=== PATIENT | male | born 1995 | race Caucasian/White ===

== ENCOUNTER 2018-07-07 23:42 | Emergency (ER) | payer OTHER ==
[2018-07-08 00:32] VITALS: BP 125/60; PULSE 66; TEMP 98.7; BMI 44.3
--- NOTE | 2018-07-08 01:01 | PDOC ---
Attending Attestation - [facility] HPI: 07/08/18 01:05 The patient is a 23 year old male, with no significant past medical history who presents to the emergency department with suprapubic pain and pressure with associated urinary frequency. He states he notices a burning suprapubic pain with sitting down and a pressure-like pain on urination. He denies penile discharge. He states he is sexually active with one partner. The patient denies chest pain, shortness of breath, headache and dizziness. The patient denies fever, chills, nausea, vomit, diarrhea and constipation. The patient denies dysuria, urgency and hematuria. Allergies: NKDA - Physicial Exam PE: 07/08/18 01:06 Constitutional: Awake, alert, oriented. No acute distress. Head: Normocephalic. Atraumatic Eyes: PERRL. EOMI. Conjunctivae are not pale. ENT: Mucous membranes are moist and intact. Posterior pharynx without exudates or erythema. Uvula midline. Neck: Supple. Full ROM. No lymphadenopathy. Cardiovascular: Regular rate. Regular rhythm. S1, S2 regular. Distal pulses are 2+ and symmetric. Pulmonary/Chest: No evidence of respiratory distress. Clear to auscultation bilaterally No wheezing, rales or rhonchi. Abdominal: (+) mild suprapubic tenderness. Soft and non-distended. No rebound , guarding or rigidity. No organomegaly. No palpable masses. Good bowel sounds. Back: No CVA tenderness. Musculoskeletal: No edema. No cyanosis. No clubbing. Full range of motion in all extremities. Nocalf tenderness. Radial/pedal pulses are intact and 2+ bilaterally Skin: Skin is warm and dry. No petechiae. No purpura. Neurological: Alert and oriented to person, place, and time. Cranial nerves II -XII are grossly intact. Normal speech. Strength is grossly symmetric. No sensory deficits. Psychiatric: Good eye contact. Normal interaction, affect and behavior. Genital: no testicular tenderness, no abscess. no perianal tenderness or abscess. No penile discharge. No lesions. - Medical Decision Making 07/08/18 01:06 Documentation prepared by Tari Long, acting as territory sales manager medical for Carmen Lara DO <Tari Long - Last Filed: 07/08/18 02:09> - Resident Resident Name: Marilyn Mckoy - ED Attending Attestation I have performed the following: I have examined & evaluated the patient, The case was reviewed & discussed with the resident, I agree w/resident's findings & plan, Exceptions are as noted - Medical Decision Making 07/08/18 01:03 I, Dr. Carmen Lara, DO, attest that this document has been prepared under my direction and personally reviewed by me in its entirety. I further attest, that it accurately reflects all work, treatment, procedures and medical decision -making performed by me. 07/09/18 16:59 a/p: 23yo male with suprapubic ttp and urinary freq -concern for uti -will send ua testicular exam no ttp, no scrotal ttp, no lesions, no discharge from the penis , no hernias ua negative discussed follow up with urology <Carmen Lara - Last Filed: 07/09/18 17:00>
--- NOTE | 2018-07-08 01:04 | PDOC ---
History of Present Illness - General Chief Complaint: Pain Stated Complaint: ROOM 2 Time Seen by Provider: 07/08/18 00:39 History Source: Patient - History of Present Illness Initial Comments: 07/08/18 00:57 Patient is a 23 year old male with no significant PMHx who presents today for a two week history of pain and pressure in the suprapubic region. Patient reports when sitting down he feels a burning sensation in the suprapubic region and when he stands up he feels pressure in the same area associated with urgency. 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 Patient does admit to holding in his urine for long periods of time when at work Patient is sexually active with only one partner, his . Denies any history of sexually transmitted disease or UTI's Patient otherwise denies any frequency, dysuria, penile discharge, testicular pain or tenderness, fever, chills, nausea, vomiting, chest pain, palpitations, shortness of breath, hematuria, melena, hematochezia, hematemesis. PMHx: Denies PSHx: Denies Social Hx: Denies drug use Drinks alcohol occasionally Smokes a cigar only on occasions Works as a cdl team truck driver Lives with and son Family Hx: Father- Healthy Mother- Healthy Past History - Past Medical History Allergies/Adverse Reactions: Allergies Allergy/AdvReac Type Severity Reaction Status Date / Time No Known Allergies Allergy Verified 07/08/18 00:23 Home Medications: Ambulatory Orders NK [No Known Home Medication] 01/24/16 - Suicide/Smoking/Psychosocial Hx Smoking History: Never smoked Have you smoked in the past 12 months: No Number of Cigarettes Smoked Daily: 1 Information on smoking cessation initiated: No Hx Alcohol Use: No Drug/Substance Use Hx: No Substance Use Type: None Review of Systems - Review of Systems Able to Perform ROS?: Yes Constitutional: No: Chills, Diaphoresis, Fever, Loss of Appetite, Night Sweats HEENTM: No: Nose Congestion, Throat Pain Respiratory: No: Cough, Shortness of Breath, Wheezing, Productive cough Cardiac (ROS): No: Chest Pain, Edema, Palpitations ABD/GI: Yes: Other (Suprapubic tenderness ). No: Abdominal Distended, Constipated, Diarrhea, Nausea, Poor Appetite, Rectal Bleeding, Vomiting : Yes: Urgency. No: Burning, Dysuria, Discharge, Frequency, Flank Pain, Testicular Mass, Testicular Swelling Musculoskeletal: No: Back Pain, Muscle Pain Integumentary: No: Bruising, Erythema, Flushing Neurological: No: Headache, Numbness, Paresthesia, Tingling, Tremors Psychiatric: No: Anxiety, Depression Endocrine: No: Flushing, Increased Thirst, Increased Urine *Physical Exam - Vital Signs Last Vital Signs Temp Pulse Resp BP Pulse Ox 98.7 F 66 18 125/60 97 07/07/18 23:48 07/07/18 23:48 07/07/18 23:48 07/07/18 23:48 07/07/18 23:48 - Physical Exam General Appearance: Yes: Other (Awake, Alert, orientedx3, no acute distress ) HEENT: positive: EOMI, DENISE, Normal ENT Inspection, TMs Normal, Pharynx Normal Neck: negative: Decreased range of motion, Lymphadenopathy (R), Lymphadenopathy (L) Respiratory/Chest: positive: Lungs Clear, Normal Breath Sounds. negative: Crackles, Rales, Rhonchi, Stridor Cardiovascular: positive: Regular Rhythm, Regular Rate, S1, S2. negative: Edema , JVD, Murmur Gastrointestinal/Abdominal: positive: Other (Soft, obese, mild tenderness upon palpation of suprapubic region, nondistended, normoactive bowel sounds. No rebound or guarding, no organomegaly ) Male Genitalia: positive: normal genitalia. negative: discharge, testicular tenderness, testicular mass, epididymus tender, inguinal hernia, hernia Lymphatic: negative: Adenopathy, Tenderness Musculoskeletal: positive: Normal Inspection, CVA Tenderness. negative: CVA Tenderness (R), CVA Tenderness (L), Decreased Range of Motion Extremity: positive: Normal Capillary Refill, Normal Inspection, Normal Range of Motion. negative: Swelling, Calf Tenderness, Erythema Integumentary: positive: Normal Color, Dry, Warm. negative: Erythema, Jaundice Neurologic: positive: provider relations manager II-XII NML intact, Fully Oriented, Alert, Normal Mood/ Affect, Normal Response, Motor Strength 5/5 Moderate Sedation - Procedure Monitoring Vital Signs: Procedure Monitoring Vital Signs Temperature 98.7 F 07/07/18 23:48 Pulse Rate 66 07/07/18 23:48 Respiratory Rate 18 07/07/18 23:48 Blood Pressure 125/60 07/07/18 23:48 O2 Sat by Pulse Oximetry (%) 97 07/07/18 23:48 Medical Decision Making - Medical Decision Making 07/08/18 01:23 Patient is a 23 year old male with no significant PMHx who presents for urinary urgency associated with suprapubic tenderness and pressure for the past two weeks. Differential diagnosis include but not limited to UTI, Pyelonephritis, hernia. -U/A and urine culture ordered -Will likely discharge once results are back 07/08/18 01:52 -Patient urine culture negative -Will give urology referral and discharge patient 07/08/18 02:06 Referral to [facility] *DC/Admit/Observation/Transfer Diagnosis at time of Disposition: Urgency of urination - Discharge Dispostion Disposition: HOME Condition at time of disposition: Stable Decision to Admit order: No - Referrals Referrals: [facility] [place] [Provider Group] Pavel Jules MD [Staff Physician] - - Patient Instructions Additional Instructions: -You were seen here for urinary urgency and suprapubic tenderness. Urine test was done and revealed No urinary tract infection. However, a referral to a urologist will be given to you and the information will be found in the discharge papers. The Urologist's name is Dr. Faustin. Please call tomorrow and make an appointment. -You were also given a referral and card to [facility] primary care at [facility] to establish care. Please call to make an appointment. -If symptoms worsen, please return to the Emergency Department. - Post Discharge Activity
[2018-07-08 01:34] LABS: URINE APPEARANCE CLEAR; URINE BILIRUBIN NEGATIVE (<2.0 mg/dL); URINE COLOR YELLOW; URINE GLUCOSE (UA) NEGATIVE (NEGATIVE); URINE KETONE NEGATIVE (NEGATIVE); URINE LEUK ESTERASE NEGATIVE (NEGATIVE); URINE NITRITE NEGATIVE (NEGATIVE); URINE PROTEIN NEGATIVE (NEGATIVE); URINE UROBILINOGEN NEGATIVE mg/dL (0.2-1.0)
== END 2018-07-08 02:22 | disposition home or self-care (01) ==
LOC: JER 23:42
DX: R39.15 Urgency of urination (principal)
CPT/HCPCS: 81003; 87086; 99282-25

== ENCOUNTER 2022-11-04 13:11 | Emergency (ER) | payer OTHER ==
[2022-11-04 13:19] VITALS: BP 108/62; PULSE 63; RESP 18; BMI 80.1
[2022-11-04] MEDS ORDERED: DIPHTH,PERTUSS(ACELL),TET 0.5 ML DISP.SYRIN IM ONE ×2 (14:18→14:21)
[2022-11-04] MEDS ORDERED: ACETAMINOPHEN 500 MG TABLET (FP) PO ONE (14:18)
[2022-11-04] MEDS ORDERED: ACETAMINOPHEN 500 MG TABLET (FP) ONE (14:20)
== END 2022-11-04 15:55 | disposition home or self-care (01) ==
LOC: JERFT 13:11
PROC: 3E0234Z Introduction of Serum, Toxoid and Vaccine into Muscle, Percutaneous Approach (ICD-10-PCS; principal; 2022-11-04)
PROC: 0HQ1XZZ Repair Face Skin, External Approach (ICD-10-PCS; 2022-11-04)
DX: S01.81XA Laceration without foreign body of other part of head, initial encounter (principal); R51.9 Headache, unspecified; W22.8XXA Striking against or struck by other objects, initial encounter; X50.0XXA Overexertion from strenuous movement or load, initial encounter; Y93.I9 Activity, other involving external motion
CPT/HCPCS: 12011-25; 70450-TC; 70486-TC; 90471; 90715; 99284-25